=== PATIENT | female | born 1985 | race Caucasian/White ===

== ENCOUNTER 2024-01-20 17:27 | Emergency (ER) | payer OTHER ==
[~2024-01-20] VITALS: Ht 167.6 cm; Wt 102.1 kg
[2024-01-20 17:50] VITALS: BP 131/71; TEMP 97.9; O2SAT 99
== END 2024-01-20 18:00 | disposition left against medical advice (07) ==
LOC: ER 17:34
DX: R22.30 Localized swelling, mass and lump, unspecified upper limb (principal); Z53.21 Procedure and treatment not carried out due to patient leaving prior to being seen by health care provider